=== PATIENT | female | born 1965 | race Caucasian/White ===

== ENCOUNTER 2017-11-15 19:30 | Emergency (ER) | payer SELFPAY ==
[~2017-11-15] VITALS: Ht 165.1 cm; Wt 53.8 kg
[2017-11-15 19:37] VITALS: TEMP 98
[2017-11-15 20:00] LABS: BASO # 0.1 (0.0-0.2); BASO % 0.9 % (0.0-2.0); EOS # 0.2 (0.0-0.7); EOS % 1.8 % (0-4.0); GRAN # 7.2 (1.4-6.5); GRAN % 69.5 % (42.2-75.2); HEMATOCRIT 40.4 % (37.0-47.0); HEMOGLOBIN 13.7 g/dl (12.5-16.0); LYMPH # 2.2 (1.2-3.4); MEAN CELL VOLUME 91 fl (80.0-100.0); MEAN CORPUSCULAR HEMOGLOBIN 31 pg (27.0-31.0); MEAN CORPUSCULAR HGB CONC 34 g/dl (33.0-37.0); MEAN PLATELET VOLUME 9.1 fl (7.4-10.4); MONO # 0.7 (0.1-0.6); MONO % 6.4 % (1.7-9.3); PLATELET COUNT 287 K/mm3 (130-400); RED BLOOD COUNT 4.42 M/mm3 (4.10-5.30); REDCELL DISTRIBUTION WIDTH-CV 12.7 % (11.5-14.5)
[2017-11-15 20:14] LABS: ALANINE AMINOTRANSFERASE 27 U/L (9-52); ALBUMIN 4.1 gm/dL (3.5-5.0); ALKALINE PHOSPHATASE 76 U/L (50-136); ANION GAP 10 mmol/L (7-16); AST,SGOT 22 U/L (15-37); BILIRUBIN,TOTAL 0.4 mg/dL (0.0-1.0); BLOOD UREA NITROGEN 19 mg/dL (7-17); CALCIUM 9.2 mg/dL (8.4-10.2); CARBON DIOXIDE 29 mmol/L (22-30); CHLORIDE 101 mmol/L (98-107); GLUCOSE 91 mg/dL (74-106); LIPASE 218 U/L (23-300); POTASSIUM 4.1 mmol/L (3.4-5.0); SODIUM 139 mmol/L (137-145); TOTAL PROTEIN 7.2 gm/dL (6.4-8.2)
[2017-11-15 20:15] LABS: C-REACTIVE PROTEIN < 0.5 mg/dL (0.0-0.9)
[2017-11-15] MEDS ORDERED: PROZAC40 MG PO (20:20)
[2017-11-15] MEDS ORDERED: FLEXERIL 1010 MG/TAB PO (20:20)
[2017-11-15] MEDS ORDERED: DESYREL 50MG50 MG PO (20:20)
[2017-11-15 21:34] LABS: COLLECTION METHOD CLEAN CATCH
[2017-11-15 21:39] LABS: MUCOUS Present /lpf; PH 7 (5-8); SQUAMOUS EPITHELIAL 0-2 /hpf; URINE APPEARANCE Clear; URINE BACTERIA None Seen /hpf; URINE BILIRUBIN Negative (NEGATIVE); URINE BLOOD Negative (NEGATIVE); URINE COLOR Yellow; URINE GLUCOSE Negative (NEGATIVE); URINE KETONE Negative (NEGATIVE); URINE LEUKOCYTE ESTERASE Negative (NEGATIVE); URINE NITRATE Negative (NEGATIVE); URINE PROTEIN(semi-quant) Negative (NEGATIVE); URINE RBC 0-2 /hpf; URINE UROBILINOGEN Negative (NEGATIVE)
[2017-11-15 21:54] VITALS: BP 122/76; PULSE 69
== END 2017-11-15 21:58 | disposition home or self-care (01) ==
LOC: COL.ER 19:30
PROVIDERS: Nurse Practitioner
DX: R10.32 Left lower quadrant pain (principal); J44.9 Chronic obstructive pulmonary disease, unspecified; F17.210 Nicotine dependence, cigarettes, uncomplicated; F12.90 Cannabis use, unspecified, uncomplicated
CPT/HCPCS: J1170; J7030; Q9967

== ENCOUNTER 2017-12-13 17:49 | Emergency (ER) | payer SELFPAY ==
[~2017-12-13] VITALS: Ht 165.1 cm; Wt 54.1 kg
[~2017-12-13 17:49] MED LIST: DESYREL 50MG50 MG PO; FLEXERIL 1010 MG/TAB PO; PROZAC40 MG PO
[2017-12-13 17:54] VITALS: BP 107/71; PULSE 91; TEMP 98.8
[2017-12-13] MEDS ORDERED: NORCO 325 MG-51 TAB PO (19:32)
[2017-12-13] MEDS ORDERED: FLEXERIL 1010 MG/TAB PO (19:32)
== END 2017-12-13 19:40 | disposition home or self-care (01) ==
LOC: COL.ER 17:49
DX: M54.5 Low back pain (principal); G89.29 Other chronic pain; F17.210 Nicotine dependence, cigarettes, uncomplicated
CPT/HCPCS: J1885; J2360

== ENCOUNTER 2018-01-05 16:59 | Emergency (ER) | payer SELFPAY ==
[~2018-01-05] VITALS: Ht 165.1 cm; Wt 55.0 kg
[~2018-01-05 16:59] MED LIST changes: +NORCO 325 MG-51 TAB PO
[2018-01-05 17:06] VITALS: TEMP 97.9
[2018-01-05 17:48] LABS: BASO # 0.1 (0.0-0.2); BASO % 0.6 % (0.0-2.0); EOS # 0.3 (0.0-0.7); EOS % 3.1 % (0-4.0); GRAN # 5.5 (1.4-6.5); GRAN % 64.1 % (42.2-75.2); HEMATOCRIT 38.2 % (37.0-47.0); HEMOGLOBIN 12.9 g/dl (12.5-16.0); LYMPH # 2.1 (1.2-3.4); LYMPH % 24.5 % (20.0-51.0); MEAN CELL VOLUME 91 fl (80.0-100.0); MEAN CORPUSCULAR HEMOGLOBIN 31 pg (27.0-31.0); MEAN CORPUSCULAR HGB CONC 34 g/dl (33.0-37.0); MEAN PLATELET VOLUME 9.3 fl (7.4-10.4); MONO # 0.6 (0.1-0.6); MONO % 7.5 % (1.7-9.3); PLATELET COUNT 231 K/mm3 (130-400); RED BLOOD COUNT 4.19 M/mm3 (4.10-5.30); REDCELL DISTRIBUTION WIDTH-CV 12.8 % (11.5-14.5)
[2018-01-05 18:05] LABS: ALANINE AMINOTRANSFERASE 28 U/L (9-52); ALBUMIN 4.1 gm/dL (3.5-5.0); ALKALINE PHOSPHATASE 58 U/L (50-136); ANION GAP 7 mmol/L (7-16); AST,SGOT 23 U/L (15-37); BILIRUBIN,TOTAL 0.3 mg/dL (0.0-1.0); BLOOD UREA NITROGEN 16 mg/dL (7-17); CARBON DIOXIDE 30 mmol/L (22-30); CHLORIDE 100 mmol/L (98-107); CREATINE KINASE 32 U/L (30-135); CREATININE, serum 0.83 mg/dL (0.52-1.25); GLUCOSE 81 mg/dL (74-106); LIPASE 97 U/L (23-300); POTASSIUM 3.9 mmol/L (3.4-5.0); SODIUM 138 mmol/L (137-145); TOTAL PROTEIN 6.8 gm/dL (6.4-8.2)
[2018-01-05 18:06] LABS: C-REACTIVE PROTEIN < 0.5 mg/dL (0.0-0.9)
[2018-01-05 18:13] LABS: COLLECTION METHOD CLEAN CATCH
[2018-01-05 18:26] LABS: MUCOUS Present /lpf; PH 7 (5-8); SQUAMOUS EPITHELIAL None Seen /hpf; URINE APPEARANCE Clear; URINE BACTERIA None Seen /hpf; URINE BILIRUBIN Negative (NEGATIVE); URINE BLOOD Negative (NEGATIVE); URINE COLOR Colorless; URINE GLUCOSE Negative (NEGATIVE); URINE KETONE Negative (NEGATIVE); URINE LEUKOCYTE ESTERASE Negative (NEGATIVE); URINE NITRATE Negative (NEGATIVE); URINE PROTEIN(semi-quant) Negative (NEGATIVE); URINE RBC 0-2 /hpf; URINE UROBILINOGEN Negative (NEGATIVE)
[2018-01-05] MEDS ORDERED: ZITHROMAX 250M250 MG PO (18:53)
[2018-01-05 19:10] VITALS: BP 88/67; PULSE 62
== END 2018-01-05 19:10 | disposition home or self-care (01) ==
LOC: COL.ER 16:59
PROVIDERS: Emergency Medicine
DX: J40 Bronchitis, not specified as acute or chronic (principal); F17.210 Nicotine dependence, cigarettes, uncomplicated; M79.1 Myalgia
CPT/HCPCS: J2270; J2405; J7030

== ENCOUNTER 2018-10-05 20:10 | Emergency (ER) | payer SELFPAY ==
[~2018-10-05] VITALS: Ht 165.1 cm; Wt 43.2 kg
[~2018-10-05 20:10] MED LIST changes: +ZITHROMAX 250M250 MG PO
[2018-10-05 20:19] VITALS: TEMP 98.6
[2018-10-05 21:04] LABS: COLLECTION METHOD CLEAN CATCH
[2018-10-05 21:09] LABS: BASO % 0.3 % (0.0-2.0); EOS # 0.1 (0.0-0.7); EOS % 0.9 % (0-4.0); GRAN # 3.5 (1.4-6.5); GRAN % 54.1 % (42.2-75.2); HEMATOCRIT 39.3 % (37.0-47.0); HEMOGLOBIN 12.9 g/dl (12.5-16.0); LYMPH # 2.4 (1.2-3.4); LYMPH % 36.2 % (20.0-51.0); MEAN CELL VOLUME 94 fl (80.0-100.0); MEAN CORPUSCULAR HEMOGLOBIN 31 pg (27.0-31.0); MEAN CORPUSCULAR HGB CONC 33 g/dl (33.0-37.0); MEAN PLATELET VOLUME 9.6 fl (7.4-10.4); MONO # 0.5 (0.1-0.6); MONO % 8.3 % (1.7-9.3); PLATELET COUNT 234 K/mm3 (130-400); RED BLOOD COUNT 4.18 M/mm3 (4.10-5.30); REDCELL DISTRIBUTION WIDTH-CV 13.3 % (11.5-14.5)
[2018-10-05 21:33] LABS: MUCOUS Present /lpf; PH 6 (5-8); SQUAMOUS EPITHELIAL 0-2 /hpf; URINE APPEARANCE Hazy; URINE BACTERIA None Seen /hpf; URINE BILIRUBIN Negative (NEGATIVE); URINE BLOOD Negative (NEGATIVE); URINE CALCIUM OXALATE CRYSTAL Present /hpf; URINE COLOR Yellow; URINE GLUCOSE Negative (NEGATIVE); URINE KETONE Trace (NEGATIVE); URINE LEUKOCYTE ESTERASE Negative (NEGATIVE); URINE NITRATE Negative (NEGATIVE); URINE PROTEIN(semi-quant) Negative (NEGATIVE); URINE RBC None Seen /hpf; URINE UROBILINOGEN Negative (NEGATIVE)
[2018-10-05 21:42] LABS: ALBUMIN 4.4 gm/dL (3.5-5.0); BILIRUBIN,TOTAL 0.2 mg/dL (0.0-1.0); C-REACTIVE PROTEIN 0.7 mg/dL (0.0-0.9); CALCIUM 9.6 mg/dL (8.4-10.2); CREATININE, serum 0.77 (0.52-1.25); POTASSIUM 3.7 mmol/L (3.4-5.0); TOTAL PROTEIN 7.2 gm/dL (6.4-8.2)
[2018-10-05] MEDS ORDERED: NORCO 325 MG-51 TAB PO (22:12)
[2018-10-05] MEDS ORDERED: ZOFRAN ODT4 MG PO (22:12)
[2018-10-05 22:40] VITALS: BP 108/64; PULSE 94
== END 2018-10-05 22:45 | disposition home or self-care (01) ==
LOC: COL.ER 20:10
PROVIDERS: Physician Assistant
DX: G89.29 Other chronic pain (principal); R10.13 Epigastric pain; R11.2 Nausea with vomiting, unspecified; F17.210 Nicotine dependence, cigarettes, uncomplicated
CPT/HCPCS: J1885; J2405; J2550

== ENCOUNTER 2023-06-11 11:34 | Emergency (ER) | payer OTHER ==
[~2023-06-11] VITALS: Ht 165.1 cm; Wt 43.2 kg
[~2023-06-11 11:34] MED LIST changes: +ZOFRAN ODT4 MG PO
[2023-06-11 11:37] VITALS: TEMP 98.9
[2023-06-11 13:26] LABS: BASO % 0.4 % (0.0-2.0); EOS % 0.3 % (0.0-4.0); GRAN # 5.4 K/mm3 (1.4-6.5); GRAN % 75.1 % (42.2-75.2); HEMATOCRIT 36.6 % (37.0-47.0); HEMOGLOBIN 12.1 g/dl (12.5-16.0); LYMPH # 1.2 K/mm3 (1.2-3.4); LYMPH % 17.2 % (20.0-51.0); MEAN CELL VOLUME 95 fl (80.0-100.0); MEAN CORPUSCULAR HEMOGLOBIN 31 pg (27-31); MEAN CORPUSCULAR HGB CONC 33 g/dl (33.0-37.0); MONO # 0.5 K/mm3 (0.1-0.6); MONO % 6.6 % (1.7-9.3); PLATELET COUNT 265 K/mm3 (130-400); RED BLOOD COUNT 3.87 M/mm3 (4.10-5.30); REDCELL DISTRIBUTION WIDTH-CV 13.2 % (11.5-14.5)
[2023-06-11 13:40] LABS: ALANINE AMINOTRANSFERASE 21 U/L (0-55); ALBUMIN 4.1 gm/dL (3.5-5.0); ALKALINE PHOSPHATASE 76 U/L (40-150); ANION GAP 8 mmol/L (7-16); AST,SGOT 24 U/L (5-34); BILIRUBIN,TOTAL 0.2 mg/dL (0.2-1.2); BLOOD UREA NITROGEN 18 mg/dL (10-20); CALCIUM 9.3 mg/dL (8.4-10.2); CARBON DIOXIDE 24 mmol/L (22-29); CHLORIDE 110 mmol/L (98-107); CREATININE, serum 0.86 mg/dL (0.57-1.11); GLUCOSE 111 mg/dL (70-99); POTASSIUM 3.8 mmol/L (3.5-4.5); SODIUM 142 mmol/L (136-145); TOTAL PROTEIN 6.7 gm/dL (6.2-8.1)
[2023-06-11 13:46] LABS: TROPONIN-I < 0.010 ng/mL (0.00-0.033)
[2023-06-11 14:41] VITALS: BP 116/69; PULSE 58
== END 2023-06-11 14:41 | disposition home or self-care (01) ==
LOC: COL.ER 11:34
PROVIDERS: Physician Assistant
DX: R07.89 Other chest pain (principal); F17.290 Nicotine dependence, other tobacco product, uncomplicated; Z79.899 Other long term (current) drug therapy; Z86.79 Personal history of other diseases of the circulatory system

== ENCOUNTER 2023-06-17 09:32 | Outpatient (CLI) | payer OTHER ==
[~2023-06-17] VITALS: Ht 165.1 cm; Wt 46.8 kg
[2023-06-17 09:49] VITALS: BP 92/56; PULSE 60; TEMP 97.7
[2023-06-17] MEDS ORDERED: MULTIPLE VITAMI1 CAP PO (10:05)
[2023-06-17] MEDS ORDERED: LEXAPRO 10MG10 MG PO (10:05)
[2023-06-17] MEDS ORDERED: PRILOSEC 20MG20 MG PO (10:05)
[2023-06-17] MEDS ORDERED: CEPHALEXIN500 M1 PO (11:43)
[2023-06-17 11:50] VITALS: BP 107/64; PULSE 61
--- NOTE | 2023-06-17 12:06 | NUR ---
Pt ambulated to [facility] scheduled for a loop implantation. EKG done. Consent for the procedure signed. Meds and HX reviewed with the pt. medical lab director came to [facility] and got the pt ready for the procedure. Post procedure dressing on the pts chest was assessed. Dressing was clean, dry, and intact. Discharge education and information given to the pt. No questions at this time. Pt exited the unit with a steady gait.
== END 2023-06-17 12:02 | disposition home or self-care (01) ==
LOC: COL.CAR 09:32
DX: R00.2 Palpitations (principal)